=== PATIENT | female | born 1945 | race Caucasian/White ===

== ENCOUNTER 2022-06-22 14:23 | Emergency (ER) | payer MEDICARE, SELFPAY ==
[2022-06-22 14:34] VITALS: BP 148/60; PULSE 92; RESP 16; TEMP 36.7; O2SAT 98
[2022-06-22 14:36] VITALS: BP 148/60; PULSE 92; RESP 16; TEMP 36.7; O2SAT 98
--- NOTE | 2022-06-22 14:48 | ED.BACK ---
HPI - Back Pain/Injury General Chief Complaint: Back Pain/Injury Stated Complaint: lower back pain Time Seen by Provider: 06/22/22 14:48 Source: patient, RN notes reviewed and old records reviewed Mode of arrival: ambulatory Limitations: no limitations History of Present Illness HPI Narrative: 77-year-old female presents to the [facility] with complaints of low back pain for 2 years. Patient states she has had a twisting injury 2 years ago. No recent trauma. Patient states the pain today was just ?unbearable. ? would like a shot in her spine. Patient states she has seen 3 doctors, has a history of back surgery. Patient states that she is upset because they keep telling her she needs physical therapy will not just give her MRI. Denies any recent loss of bowel or bladder. Denies any urinary symptoms. No frequency urgency or burning. Denies abdominal pain. Walks with a normal gait. No numbness tingling in extremities. Patient states that she has pain that starts in her foot up aches and travels down the legs. Denies any saddle anesthesia No midline tenderness MD elicited complaint: back pain Related Data Home Medications Medication Instructions Recorded Confirmed atenolol 25 mg tablet 25 mg PO DAILY 06/22/22 06/22/22 atorvastatin 10 mg tablet 10 mg PO DAILY 06/22/22 06/22/22 lisinopril 10 1 tablet PO DAILY 06/22/22 06/22/22 mg-hydrochlorothiazide 12.5 mg tablet medroxyprogesterone 2.5 mg tablet 2.5 mg PO DAILY 06/22/22 06/22/22 nortriptyline 10 mg capsule 10 mg PO HS 06/22/22 06/22/22 pantoprazole 20 mg tablet,delayed 20 mg PO DAILY 06/22/22 06/22/22 release Allergies Allergy/AdvReac Type Severity Reaction Status Date / Time latex Allergy Intermediate Rash Verified 06/22/22 15:43 Review of Systems Review of Systems: All systems reviewed & are unremarkable except as noted in HPI and below Constitutional: Constitutional: Reports no additional constitutional complaints Eyes: Eyes: Reports no additional eye complaints ENT: Reports system reviewed and no additional complaints, except as documented Cardiovascular: Cardiovascular: Reports no additional cardiovascular complaints, Denies chest pain and Denies dyspnea Respiratory: Respiratory: Reports no additional respiratory complaints, Denies chest congestion, Denies cough and Denies dyspnea Gastrointestinal: Gastrointestinal: Reports no additional gastrointestinal complaints, Denies abdominal pain, Denies nausea and Denies vomiting Musculoskeletal: Musculoskeletal: Reports as per HPI, Reports back pain, Denies myalgias, Denies arthralgias and Denies joint swelling Integumentary/Breasts: Skin/Breast: Reports system reviewed and no additional complaints, except as docu Neurologic: Reports system reviewed and no additional complaints, except as documented Psychiatric: Psychiatric: Reports no additional psychiatric complaints Allergic/Immunologic: Allergic/Immunologic: Reports no additional allergic/immunologic complaints PMFSH Comments At the time of my signature, I reviewed and agree with the nursing past medical, surgical, social, and family history. There is no relevant family history pertinent to the patient complaint. Exam Const: General: cooperative, healthy appearing, comfortable, no acute distress, well developed, alert and well nourished Nutritional Appearance: well nourished and obese Orientation/consciousness: patient oriented x3 Limitations: no limitations HENMT: Head: normal to inspection Ears: hearing grossly normal bilaterally and external ears normal Face/Nose/Sinus: Normal external nose present, Normal nares present, Normal nasal mucous membranes and turbinates present and normal facial exam Face and sinus: normal facial exam Mouth: Yes Normal oral and palatal mucosa present, Yes lip normal and Yes moist mucous membranes Eyes: General: appearance normal, both eyes and all related structures Alignment and Position: alignment normal Perior
[2022-06-22] MEDS: TRIAMCINOLONE ACET INJ 40 MG/ML VIAL IM (15:23)
== END 2022-06-22 16:00 | disposition home or self-care (01) ==
PROVIDERS: Emergency Provider Nurse Practitioner
DX: G89.29 Other chronic pain (principal); M54.50 Low back pain, unspecified; E78.00 Pure hypercholesterolemia, unspecified; I10 Essential (primary) hypertension; K21.9 Gastro-esophageal reflux disease without esophagitis; M19.90 Unspecified osteoarthritis, unspecified site; Z95.0 Presence of cardiac pacemaker
CPT/HCPCS: 96372; 99203; G0463; J3301

== ENCOUNTER 2022-08-18 17:08 | Emergency (ER) | payer MEDICARE, SELFPAY ==
[2022-08-18 17:18] VITALS: BP 154/71; PULSE 102; RESP 16; TEMP 37.1; O2SAT 99
--- NOTE | 2022-08-18 17:38 | ED.EAR ---
HPI - Ear Problem General Chief complaint: Ear Stated complaint: right eye redness/ear pain Time Seen by Provider: 08/18/22 17:42 Source: patient and RN notes reviewed Mode of arrival: ambulatory Limitations: no limitations History of Present Illness HPI Narrative: 77-year-old female presents with concern for left ear pain and fullness, right eye redness, irritation. Reports she has chronic dry eyes in often wakes up with her eyes dry overnight. She reports she has had sinus congestion, drainage for or what month it she relates to allergies. Reports she takes Zyrtec. She denies fever, chills, sweats, shortness of breath, cough. Denies known sick contacts MD Complaint: ear pain and other (Eye redness) Related Data Home Medications Medication Instructions Recorded Confirmed atenolol 25 mg tablet 25 mg PO DAILY 06/22/22 08/18/22 atorvastatin 10 mg tablet 10 mg PO DAILY 06/22/22 08/18/22 lisinopril 10 1 tablet PO DAILY 06/22/22 08/18/22 mg-hydrochlorothiazide 12.5 mg tablet medroxyprogesterone 2.5 mg tablet 2.5 mg PO DAILY 06/22/22 08/18/22 nortriptyline 10 mg capsule 10 mg PO HS 06/22/22 08/18/22 pantoprazole 20 mg tablet,delayed 20 mg PO DAILY 06/22/22 08/18/22 release gabapentin 100 mg capsule 100 mg DAILY 08/18/22 08/18/22 Allergies Allergy/AdvReac Type Severity Reaction Status Date / Time latex Allergy Intermediate Rash Verified 08/18/22 17:31 adhesive tape Allergy Rash Verified 08/18/22 17:31 Review of Systems Review of Systems: CONSTITUTIONAL: Denies malaise, chills, sweats, or fever. EYES: Denies visual changes. Reports right eye redness, dryness, irritation, watery discharge. ENT: Reports rhinorrhea, congestion, sinus pain, left ear pain CARDIOVASCULAR: Denies chest pain, palpitations, or edema. RESPIRATORY: Denies cough. Denies dyspnea. GASTROINTESTINAL: Denies abdominal pain, nausea, vomiting, diarrhea SKIN: Denies rash or itching. MUSCULOSKELETAL: Denies myalgia. NEUROLOGIC: Denies headache. All systems reviewed & are unremarkable except as noted in HPI and below PMFSH Comments At time of signature, agree with nursing past medical, surgical, social and family history. There is no relevant family history pertinent to the presenting complaint Exam Narrative: GENERAL: Well-appearing, well-nourished, and in no acute distress. HEAD: Normocephalic EYES: PERRLA. Right eye conjunctiva and sclera mildly injected cloudy drainage, upper and lower lid unremarkable ENT: Nares clear, turbinates edematous, clear discharge. Mucous membranes moist. TM pearly mcnally with dull light reflex bilaterally; no tragal tenderness. Oropharynx not erythematous without lesions. Tonsils not enlarged and without exudate, no drooling, no hoarseness, no trismus, uvula midline. NECK: Supple. No lymphadenopathy CHEST: Clear to auscultation, breath sounds equal. No wheezing, rhonchi, rales, or stridor. No respiratory distress, speaks in full sentences. HEART: Regular rate and rhythm. No murmur heard. SKIN: Warm, dry, no rash. NEURO: Alert and oriented x3. PSYCH: Normal mood and affect Course Course Emergency Course: Patient is aware of diagnosis, understands and agrees to treatment plan. Anticipatory guidance given. Patient agrees to follow-up as directed and is aware of reasons to seek care at the emergency department. Portions of this record may have been created with voice recognition software Level of Care: Express Care Visit Vital Signs Vital signs: Vital Signs Temperature 98.7 F 08/18/22 17:18 Pulse Rate 102 H 08/18/22 17:18 Respiratory Rate 16 08/18/22 17:18 Blood Pressure 154/71 H 08/18/22 17:18 Pulse Oximetry 99 08/18/22 17:18 Oxygen Delivery Room Air 08/18/22 17:18 Temperature 98.7 F 08/18/22 17:18 Pulse Rate 102 H 08/18/22 17:18 Respiratory Rate 16 08/18/22 17:18 Blood Pressure 154/71 H 08/18/22 17:18 Pulse Oximetry 99 08/18/22 17:18 Oxygen Delivery Room Air 08/18/22 17:1
[2022-08-18 18:10] VITALS: BP 125/67; PULSE 102; O2SAT 97
== END 2022-08-18 18:10 | disposition home or self-care (01) ==
PROVIDERS: Emergency Provider Nurse Practitioner
DX: J32.9 Chronic sinusitis, unspecified (principal); H10.31 Unspecified acute conjunctivitis, right eye
CPT/HCPCS: 99213; G0463